=== PATIENT | male | born 1945 | race Two or more races ===

== ENCOUNTER → 2023-09-25 10:50 | Outpatient (REF) | payer MEDICARE, OTHER, SELFPAY | LOC: DHVS 10:50 | PROVIDERS: ATTENDING PHYSICIAN Surgery Vascular Surgery | DX: I73.9 Peripheral vascular disease, unspecified (principal) | CPT/HCPCS: 93922; 93925 ==

== ENCOUNTER → 2024-10-07 09:33 | Outpatient (REF) | payer MEDICARE, OTHER, SELFPAY | LOC: RAD 09:33 | PROVIDERS: ATTENDING PHYSICIAN Surgery Vascular Surgery; FAMILY PHYSICIAN Internal Medicine | DX: I73.9 Peripheral vascular disease, unspecified (principal) | CPT/HCPCS: 93922; 93925 ==